=== PATIENT | male | born 2000 | race Caucasian/White ===

== ENCOUNTER 2024-01-08 08:24 | Emergency (ER) | payer SELFPAY ==
[~2024-01-08] VITALS: Ht 172.7 cm; Wt 105.0 kg
[2024-01-08 08:40] VITALS: O2SAT 100
[2024-01-08] MEDS: IBUPROFEN 600MG TABLET PO ONE (10:00)
[2024-01-08 10:03] VITALS: BP 122/69; PULSE 58; RESP 18; TEMP 98.7
== END 2024-01-08 10:19 | disposition home or self-care (01) ==
LOC: ER 08:24
DX: M25.511 Pain in right shoulder (principal)
CPT/HCPCS: 73030; 99283